=== PATIENT | male | born 1985 | race Caucasian/White ===

== ENCOUNTER 2017-03-04 18:39 | Emergency (ER) | payer BC ==
--- NOTE | 2017-03-04 19:27 | EDM.PDOC ---
ED HPI GENERAL MEDICAL PROBLEM - General Chief Complaint: Eye Problems Stated Complaint: PAIN RT EYE Time Seen by Provider: 03/04/17 19:15 - History of Present Illness INITIAL COMMENTS - FREE TEXT/NARRATIVE: swollen red upper eye lid. He "popped" a stye there two days ago. Right eye Pain Score (Numeric/FACES): 2 - Related Data Allergies Allergy/AdvReac Type Severity Reaction Status Date / Time No Known Allergies Allergy Verified 03/04/17 19:00 Home Meds: Home Meds . [No Known Home Meds] 06/13/15 [History] Past Medical History - Past Health History Medical/Surgical History: Denies Medical/Surgical History Cardiovascular History: Denies: Heart Failure, Hypertension Other Genitourinary History: only one kidney, "horseshoe kidney" Social & Family History - Family History Family Medical History: Noncontributory - Tobacco Use Smoking Status *Q: Light Tobacco Smoker Years of Tobacco use: 0 - Caffeine Use Caffeine Use: Reports: None - Recreational Drug Use Recreational Drug Use: No ED ROS GENERAL - Review of Systems Review Of Systems: See Below Constitutional: Denies: Fever ED EXAM GENERAL W FULL EYE - Physical Exam Exam: See Below Text/Narrative:: right upper eye lid red and swollen ; conjunctiva and cornea appear grossly normal; denies pain; denies ocular trauma Course - Vital Signs Last Recorded V/S: Last Vital Signs Temp 98.1 F 03/04/17 19:02 Pulse 85 03/04/17 19:02 Resp 16 03/04/17 19:02 BP 155/91 H 03/04/17 19:02 Pulse Ox 96 03/04/17 19:02 Departure - Departure Time of Disposition: 19:28 Disposition: Home, Self-Care 01 Clinical Impression: Cellulitis, Hordeolum externum (stye) - Discharge Information Forms: ED Department Discharge Additional Instructions: keflex 500 mg qid x ten days bactrim DS bid x ten days erythromycin eye ointment bid x ten days recheck if not improving recheck blood pressure; see a doctor if blood pressure higher than 140/90 mm Hg.
[2017-03-05 04:20] VITALS: BP 148/89
== END 2017-03-04 19:39 | disposition home or self-care (01) ==
LOC: MW.ED 18:39
DX: H00.011 Hordeolum externum right upper eyelid (principal); H00.031 Abscess of right upper eyelid; I10 Essential (primary) hypertension
CPT/HCPCS: 99283

== ENCOUNTER 2019-09-05 23:22 | Emergency (ER) | payer BC ==
[2019-09-05 23:29] VITALS: BP 152/82; PULSE 69
[2019-09-05] MEDS ORDERED: Acetaminophen/HYDROcodone 325-7.5 MG Tab PO ONE (23:40)
--- NOTE | 2019-09-05 23:45 | EDM.PDOC ---
ED HPI GENERAL MEDICAL PROBLEM - General Chief Complaint: Upper Extremity Injury/Pain Stated Complaint: LT SHOULDER PAIN Time Seen by Provider: 09/05/19 23:36 - History of Present Illness INITIAL COMMENTS - FREE TEXT/NARRATIVE: HISTORY AND PHYSICAL: History of present illness: the patient is a 33-year-old male who presents with complaints of left posterior shoulder/neck pain that has been going on for a little bit over the last few days but worsened significantly tonight. 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 He has known numbness or weakness in his arm and no bony pain or tenderness. He has no chest pain fever chills or shortness of breath. He's been eating and drinking normally and he has been taking [id number] nonsteroidals for the discomfort. He has no direct trauma to the area and he was going to go to the chiropractor for the lesser pain that he has been having for a couple of days but when he got worse tonight they decided to come here.the patient says that the pain is not really in his shoulder but more in his posterior neck and when he moves his neck or arm it triggers the discomfort. Review of systems: As per history of present illness and below otherwise all systems reviewed and negative. Past medical history: As per history of present illness and as reviewed below otherwise noncontributory. Surgical history: As per history of present illness and as reviewed below otherwise noncontributory. Social history: No reported history of drug or alcohol abuse. Family history: As per history of present illness and as reviewed below otherwise noncontributory. Physical exam: general: Well-developed well-nourished overweight man who is nontoxic and looks uncomfortable in the room and refrains from moving his left upper extremity or his neck due to dicomfort as he says movements will make it worse HEENT: Atraumatic, normocephalic, pupils reactive, negative for conjunctival pallor or scleral icterus, mucous membranes moist, throat clear, neck supple, nontender, trachea midline.there are no midline step-offs in his defects of the cervical spine but on palpation of the posterior neck and trapezius muscles on the left there is spasm appreciated and I can reproduce the pain exactly. Lungs: Clear to auscultation, breath sounds equal bilaterally, chest nontender. Heart: S1S2, regular, negative for clicks, rubs, or JVD. Abdomen: Soft, nondistended, nontender. Negative for masses or hepatosplenomegaly. Negative for costovertebral tenderness. Pelvis: Stable nontender. Genitourinary: Deferred. Rectal: Deferred. Extremities: Atraumatic, negative for cords or calf pain. Neurovascular unremarkable.full range of motion without defects or deficits and there is no palpable bony deformity of the clavicle shoulder or left upper extremity. There is no malalignment and the patient can touch the contralateral shoulder without deficits.the patient does not have any trigger point/bursa tenderness of the shoulder anteriorly Neuro: Awake, alert, oriented. Cranial nerves II through XII unremarkable. Cerebellum unremarkable. Motor and sensory unremarkable throughout. Exam nonfocal. Diagnostics: x-ray left shoulder and cervical spine Therapeutics: Jeddo Norflex Impression: left neck paraspinal muscle spasms/posterior shoulder muscle spasm Definitive disposition and diagnosis as appropriate pending reevaluation and review of above. left shouler Pain Score (Numeric/FACES): 10 - Related Data Allergies Allergy/AdvReac Type Severity Reaction Status Date / Time No Known Allergies Allergy Verified 09/05/19 23:59 Home Meds: Home Meds . [No Known Home Meds] 06/13/15 [History] Past Medical History - Past Health History Medical/Surgical History: Denies Medical/Surgical History Cardiovascular History: Reports: None Respiratory History: Reports: None Gastrointestinal History: Reports: None Other Genitourinary History: only one kidney, "horseshoe kidney" Musculoskeletal History: Reports: None Neurological History: Reports: None Psychiatric History: Reports: None Endocrine/Metabolic History: Reports: None Hematologic History: Reports: None Social & Family History - Family History Family Medical History: Noncontributory - Tobacco Use Smoking Status *Q: Never Smoker - Caffeine Use Caffeine Use: Reports: None - Recreational Drug Use Recreational Drug Use: No Review of Systems - Review of Systems Review Of Systems: Comprehensive ROS is negative, except as noted in HPI. ED EXAM, GENERAL - Physical Exam Exam: See Below (see dictation) Course - Vital Signs Last Recorded V/S: Last Vital Signs Temp 36.8 C 09/05/19 23:25 Pulse 69 11/18/19 23:25 Resp 20 09/05/19 23:25 BP 152/82 H 09/05/19 23:25 Pulse Ox 99 09/05/19 23:25 - Orders/Labs/Meds Meds: Medications Discontinued Medications Generic Name Dose Route Start Last Admin Trade Name Lloyd PRN Reason Stop Dose Admin Hydrocodone Bitart/Acetaminophen 1 tab 09/05/19 23:40 09/06/19 00:00 Jeddo 325-7.5 Mg PO 09/05/19 23:41 1 tab ONETIME ONE Administration Orphenadrine Citrate 60 mg 09/05/19 23:40 09/06/19 00:00 Norflex IM 09/05/19 23:41 60 mg ONETIME ONE Administration Departure - Departure Time of Disposition: 00:59 Disposition: Home, Self-Care 01 Condition: Good Clinical Impression: Neck pain, musculoskeletal Musculoskeletal pain of upper extremity Qualifiers: Laterality: left Qualified Code(s): M79.602 - Pain in left arm - Discharge Information Referrals: PCP,None [Primary Care Provider] - Forms: ED Department Discharge Additional Instructions: The following information is given to patients seen in the emergency department who are being discharged to home. This information is to outline your options for follow-up care. We provide all patients seen in our emergency department with a follow-up referral. The need for follow-up, as well as the timing and circumstances, are variable depending upon the specifics of your emergency department visit. If you don't have a primary care physician on staff, we will provide you with a referral. We always advise you to contact your personal physician following an emergency department visit to inform them of the circumstance of the visit and for follow-up with them and/or the need for any referrals to a consulting specialist. The emergency department will also refer you to a specialist when appropriate. This referral assures that you have the opportunity for followup care with a specialist. All of these measure are taken in an effort to provide you with optimal care, which includes your followup. Under all circumstances we always encourage you to contact your private physician who remains a resource for coordinating your care. When calling for followup care, please make the office aware that this follow-up is from your recent emergency room visit. If for any reason you are refused follow-up, please contact the [facility] emergency department at and ask to speak to the emergency department charge nurse. [facility] Primary care- Internal Medicine and Family [place] [phone] use heat to area of muscle spasm and try to stretch the area to open it up. Use medications as prescribed and needed for pain management. You have been given medications from [facility], Flexeril and tramadol/Voltaren. Only take the latter 2 when you're at home as they may make you drowsy or sleepy. Please call and schedule a follow-up appointment with your provider or one of ours for further evaluation and care of this problem. The area may take several days to one week to open up. Return to ER as needed and as discussed
--- NOTE | 2019-09-06 00:56 | CR ---
INDICATION: Neck and left shoulder pain for 1 week. COMPARISON: None. FINDINGS/IMPRESSION: Cervical spine, 4 views. Limited visualization of the lower cervical spine on lateral views due to overlying soft tissue. No fracture identified in the cervical spine. No destructive osseous lesions. Straightening of cervical lordosis, possibly reflecting muscle spasm. No prevertebral soft tissue thickening. Mild degenerative disc disease at C5-6. Dictated by Bandar Bush MD @ 09/06/2019 12:51:56 AM Dictated by: Bandar Bush MD @ 09/06/2019 00:54:49 (Electronically Signed)
--- NOTE | 2019-09-06 00:59 | CR ---
INDICATION: Neck and left shoulder pain for 1 week. Shoulder pain not worsened by rotation. LEFT SHOULDER No fracture, dislocation, or destructive lesion of bone is seen. No arthritic changes or soft tissue abnormalities are identified. IMPRESSION: Negative left shoulder radiographs. RADHA RM MD [facility] Dictated by: Bandar Rm MD @ 09/06/2019 00:57:15 (Electronically Signed)
[2019-09-06] MEDS ORDERED: Diazepam 2 MG Tab PO ONE (01:06)
== END 2019-09-06 01:52 | disposition home or self-care (01) ==
LOC: MW.ED 23:22
DX: M54.2 Cervicalgia (principal); M25.512 Pain in left shoulder; M62.838 Other muscle spasm
CPT/HCPCS: 72040; 73030; 96372; 99283; A9270; J2360

== ENCOUNTER 2022-10-18 22:01 | Emergency (ER) | payer BC ==
[2022-10-18] MEDS ORDERED: fentaNYL 50 MCG/ML SDV IVPUSH ONE ×2 (22:14→23:27)
[2022-10-18] MEDS ORDERED: Sodium Chloride 0.9% 10 ML Syringe FLUSH PRN (22:14)
[2022-10-18] MEDS ORDERED: Sodium Chloride 0.9% 2.5 ML Syringe FLUSH PRN (22:14)
[2022-10-18] MEDS ORDERED: Sodium Chloride 0.9% 1,000 ML IV ONE (22:14)
[2022-10-18 22:50] LABS: BLOOD UREA NITROGEN,BUN 23 mg/dL (7.0-18.0); CHLORIDE,CL 104 mmol/L (98-107); GLUCOSE RANDOM 113 mg/dL (74-106); LIPASE 125 U/L (73-393); POTASSIUM,K 3.3 mmol/L (3.5-5.1); SODIUM,NA 139 mmol/L (136-148)
[2022-10-18 22:51] LABS: ESTIMATED GFR 89 mL/min (>60)
[2022-10-18] MEDS ORDERED: ceFAZolin 2 GM in Premix Bag 1 BAG IV ONE (22:57)
[2022-10-18] MEDS ORDERED: Diphtheria,Pertussis(Acell),Tetanus Vaccine 0.5 ML Syringe IM ONE (22:59)
[2022-10-19 00:06] VITALS: BP 164/91; PULSE 89
[2022-10-19 01:07] LABS: CORONAVIRUS COVID-19 NAA NEGATIVE (NEGATIVE); INFLUENZA A NAA NEGATIVE (NEGATIVE); INFLUENZA B NAA NEGATIVE (NEGATIVE)
[2022-10-19] MEDS ORDERED: fentaNYL 50 MCG/ML SDV IVPUSH ONE ×4 (02:04→04:59)
== END 2022-10-19 04:21 ==
LOC: MW.ED 22:01
DX: S61.210A Laceration without foreign body of right index finger without damage to nail, initial encounter (principal); S61.011A Laceration without foreign body of right thumb without damage to nail, initial encounter; S61.212A Laceration without foreign body of right middle finger without damage to nail, initial encounter; T21.31XA Burn of third degree of chest wall, initial encounter; Z20.822 Contact with and (suspected) exposure to COVID-19; Z23 Encounter for immunization; W39.XXXA Discharge of firework, initial encounter
CPT/HCPCS: 0240U; 36415; 70450; 71045; 73130; 80053; 80307; 83690; 84484; 85025; 85610; 85730; 90471; 90715; 96361; 96365; 96375; 96376; 99285; J0690; J3010; J3490; J7030

== ENCOUNTER 2023-08-14 14:11 | Emergency (ER) | payer BC ==
[2023-08-14 14:26] VITALS: BP 146/107; PULSE 102
[2023-08-14] MEDS ORDERED: Cephalexin 500 MG Cap PO ONE (14:34)
[2023-08-14] MEDS ORDERED: Lidocaine 1% PF 2 ML SDV INJECT ONE (14:36)
[2023-08-14 16:20] LABS: BASOPHILS ABSOLUTE AUTO 0.02 K/uL (0.00-0.20); BASOPHILS PERCENT AUTO 0.2 % (0.0-1.0); EOSINOPHILS ABSOLUTE AUTO 0.03 K/uL (0.00-0.45); EOSINOPHILS PERCENT AUTO 0.4 % (0.0-6.0); HEMATOCRIT 43.1 % (42.0-52.0); IMMATURE GRAN ABSOLUTE AUTO 0.03 K/uL (0.00-0.05); IMMATURE GRAN PERCENT AUTO 0.4 % (0.0-0.4); LYMPHOCYTES ABSOLUTE AUTO 1.82 K/uL (1.00-4.80); LYMPHOCYTES PERCENT AUTO 22.3 % (24.0-44.0); MEAN CORPUSCULAR HEMOGLOBIN 31.3 pg (28.0-32.0); MEAN CORPUSCULAR HGB CONC 37.1 g/dL (32.0-36.0); MEAN CORPUSCULAR VOLUME 84.3 fL (83.0-99.0); MEAN PLATELET VOLUME 9.1 fL (9.4-12.4); MONOCYTES ABSOLUTE AUTO 0.46 K/uL (0.00-0.80); MONOCYTES PERCENT AUTO 5.6 % (0.0-8.0); NEUTROPHILS ABSOLUTE AUTO 5.81 K/uL (1.80-7.70); NEUTROPHILS PERCENT AUTO 71.1 % (41.0-71.0); PLATELET COUNT,PLT 188 K/uL (150-400); RED BLOOD CELL COUNT 5.11 M/uL (4.52-5.90); WHITE BLOOD CELL COUNT,WBC 8.17 K/uL (3.9-11.3)
[2023-08-14 16:42] LABS: CARBON DIOXIDE,CO2 28.1 mmol/L (21.0-32.0); EST CRCL DRUG DOSING (CG) 90.38 mL/min; POTASSIUM,K 3.9 mmol/L (3.5-5.1)
[2023-08-14 17:05] LABS: LACTIC ACID 1.2 mmol/L (0.4-2.0)
== END 2023-08-14 17:42 | disposition home or self-care (01) ==
LOC: MW.ED 14:11
DX: L03.012 Cellulitis of left finger (principal)
CPT/HCPCS: 36415; 73140; 80048; 83605; 85025; 99283; A9270; J3490

== ENCOUNTER 2024-01-28 17:17 | Emergency (ER) | payer BC ==
[2024-01-28 18:23] VITALS: PULSE 99
[2024-01-28] MEDS: predniSONE 10 MG Tab PO ONE (18:27)
[2024-01-28 18:45] VITALS: BP 137/35
== END 2024-01-28 18:35 | disposition home or self-care (01) ==
LOC: MW.ED 17:17
DX: L25.4 Unspecified contact dermatitis due to food in contact with skin (principal); L50.9 Urticaria, unspecified; I10 Essential (primary) hypertension; Z75.8 Other problems related to medical facilities and other health care; Z79.899 Other long term (current) drug therapy
CPT/HCPCS: 99283; A9270